=== PATIENT | male | born 1965 | race American Indian/Alaskan Native ===

== ENCOUNTER 2016-08-07 11:05 | Emergency (ER) | payer MEDICAID ==
[2016-08-07 12:07] VITALS: BP 157/71
== END 2016-08-07 13:13 | disposition left against medical advice (07) ==
LOC: ED 11:05
DX: L29.9 Pruritus, unspecified (principal); Z53.21 Procedure and treatment not carried out due to patient leaving prior to being seen by health care provider

== ENCOUNTER 2016-10-25 10:42 | Outpatient (CLI) | payer MEDICAID ==
--- NOTE | 2016-10-25 11:28 | XRay Report ---
CHEST 2 VIEWS INDICATION: History of positive PPD. COMPARISON: 12/01/2015. FINDINGS: PA and lateral chest radiographs demonstrate normal cardiomediastinal silhouette. Clear lungs. Stable bones, including bilateral humeral head sclerosis/AVN. CONCLUSION: No acute disease in the chest, stable, as described. Thank you for the opportunity to participate in this patient's care.
== END 2016-10-25 10:43 | disposition home or self-care (01) ==
LOC: XRAY 10:42
PROVIDERS: ATTEND Internal Medicine Infectious Disease
DX: R76.11 Nonspecific reaction to tuberculin skin test without active tuberculosis (principal)
CPT/HCPCS: 71020